=== PATIENT | male | born 1995 | race Caucasian/White ===

== ENCOUNTER 2016-07-26 08:41 | Emergency (ER) | payer OTHER ==
[2016-07-26 08:50] VITALS: O2SAT 100
[2016-07-26] MEDS ORDERED: XYLOCAINE 1%/Epi 1:100000 MDV 20 ML IJ ONE (09:16)
[2016-07-26] MEDS ORDERED: MORPHINE SULFATE 10 MG/ML IM ONE (09:16)
--- NOTE | 2016-07-26 09:21 | ERPHSYRPT ---
- History of Present Illness Time Seen by Provider: 07/26/16 08:45 Source: patient Patient Subjective Stated Complaint: pt had bm today and then noticed bright red blood in stool, Triage Nursing Assessment: pt has pain to rectum rating in at 7/10, pt dizzy Physician History: CC: hemorrhoid Hx: 20 y/o healthy male patient of Dr Franklin. He has hx of prior hemorrhoid in past with no need for medical treatment. Today he had BM at work and noted hemorrhoid, blood in toilet. He was concerned about blood. [place] some headache and lightheaded, left work, and came to ER. No abd pain. Timing/Duration: today Severity: moderate Allergies/Adverse Reactions: No Known Drug Allergies Allergy (Verified 07/26/16 08:51) Home Medications: No Home Meds 1 ea UD 01/03/15 [History] Hx Tetanus, Diphtheria Vaccination/Date Given: Yes Hx Influenza Vaccination/Date Given: No Hx Pneumococcal Vaccination/Date Given: No Immunizations Up to Date: Yes - Review of Systems Constitutional: No Fever, No Chills Abdominal/Gastrointestinal: Hematochezia, No Abdominal Pain, No Nausea, No Vomiting, No Diarrhea Genitourinary Symptoms: No Dysuria Musculoskeletal: No Back Pain Skin: No Rash Neurological: Dizziness (lightheaded), Headache, No Parasthesia All Other Systems: Reviewed and Negative - Past Medical History Pertinent Past Medical History: No - Past Surgical History Past Surgical History: Yes Other Surgical History: plastic surg of face - Social History Smoking Status: Current every day smoker How long have you smoked: YRS Exposure to second hand smoke: Yes Drug Use: none Patient Lives Alone: No - Nursing Vital Signs Nursing Vital Signs: Initial Vital Signs Temperature 99 F Temperature Source Oral Pulse Rate 71 Respiratory Rate 18 Blood Pressure [Right Arm] 160/87 Pain Intensity 7 - Physical Exam General Appearance: alert Eye Exam: PERRL/EOMI Ears, Nose, Throat Exam: normal ENT inspection, moist mucous membranes Neck Exam: normal inspection, non-tender, supple Respiratory Exam: normal breath sounds, lungs clear Cardiovascular Exam: regular rate/rhythm Gastrointestinal/Abdomen Exam: soft, No tenderness, No distention Male Genitalia Exam: normal genitalia Rectal Exam: hemorrhoids (partially thrombosed, open, mild bleeding) Back Exam: normal inspection, normal range of motion Extremity Exam: normal inspection, normal range of motion Neurologic Exam: alert, oriented x 3, cooperative Skin Exam: warm, dry, No rash SpO2 Interpretation: normal SpO2: 100 Oxygen Delivery: Room Air Procedures - Incision and Drainage Site: left sided external thrombosed hemorrhoid Anesthesia: 1% lidocaine w/epi cc's of anesthesia: 3 I & D Procedure: betadine prep Progress: The area was numbed with lidocaine. There was already a skin opening. Clot was squeezed thru this opening and remaining clot extracted with forceps. Tolerated well. No further bleeding. - Course Nursing assessment & vital signs reviewed: Yes Ordered Tests: Medication Summary Discontinued Medications Generic Name Dose Route Start Last Admin Trade Name Freq PRN Reason Stop Dose Admin Lidocaine/Epinephrine 5 ml 07/26/16 09:16 07/26/16 09:26 Xylocaine 1%/Epi [id number] Mdv 20 Ml IJ 07/26/16 09:17 5 ml STAT ONE Administration Lidocaine/Epinephrine Confirm 07/26/16 09:22 Xylocaine 1%/Epi 1:[id number] Mdv 20 Ml Administered 07/26/16 09:23 Dose 5 ml .ROUTE .STK-MED ONE Morphine Sulfate 8 mg 07/26/16 09:16 07/26/16 09:24 Morphine Sulfate 10 Mg/Ml IM 07/26/16 09:17 8 mg STAT ONE Administration Morphine Sulfate Confirm 07/26/16 09:22 Morphine Sulfate 10 Mg/Ml Administered 07/26/16 09:23 Dose 10 mg .ROUTE .STK-MED ONE - Progress Progress Note: 07/26/16 09:20 Discussed conservative Rx with witch horacio and hydrocortisone vs local anesthetic and clot excision. The hemorrhoid is already open. He discussed with mother and decided for attempt at clot removal. Discussed risks and benefits. - Departure Time of Disposition: 09:54 Departure Disposition: Home Clinical Impression: External hemorrhoid, bleeding Condition: Stable Critical Care Time: No Referrals: INO FRANKLIN MD [Primary Care Provider] - Instructions: Hemorrhoids Additional Instructions: Use sitz baths a couple of times a day. Cleanse with witch horacio pads several times a day. Rx hydrocortisone hemorrhoid cream. Tylenol if needed for discomfort. Return for problems or concerns. Follow up with Dr Franklin. Prescriptions: Hydrocortisone [Hydrocortisone 1%] 28 gm TP QID PRN #1 lashaun Merino [[place]] 1 each TP QID PRN #1 box
[2016-07-26] MEDS ORDERED: MORPHINE SULFATE 10 MG/ML ONE (09:22)
[2016-07-26] MEDS ORDERED: XYLOCAINE 1%/Epi 1:100000 MDV 20 ML ONE (09:22)
[2016-07-26 10:05] VITALS: BP 151/88; PULSE 76
== END 2016-07-26 10:05 | disposition home or self-care (01) ==
LOC: ED 08:41
DX: K64.4 Residual hemorrhoidal skin tags (principal)
CPT/HCPCS: 96372; 99283; 99284; J2270

== ENCOUNTER 2018-12-09 17:44 | Emergency (ER) | payer BC, OTHER ==
[2018-12-09 19:03] VITALS: BP 135/95; PULSE 88; O2SAT 98
--- NOTE | 2018-12-09 19:10 | ERPHSYRPT ---
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 sq only no tendon involvement seen on exploration and catalino debridment. Occurred: this afternoon Method of Injury: incised Quality: sharpness Extremities Pain Location: hand: left Modifying Factors: Improves With: movement Associated Symptoms: none Allergies/Adverse Reactions: No Known Drug Allergies Allergy (Verified 12/09/18 18:07) Home Medications: Dextroamphetamine/Amphetamine [Dextroamp-Amphetamin 20 mg Tab] 20 mg BID [History] Hx Tetanus, Diphtheria Vaccination/Date Given: Yes (08/2018) Hx Influenza Vaccination/Date Given: No Hx Pneumococcal Vaccination/Date Given: No Immunizations Up to Date: No - Review of Systems Constitutional: No Fever, No Chills Eyes: No Symptoms Ears, Nose, & Throat: No Symptoms Respiratory: No Cough, No Dyspnea Cardiac: No Chest Pain, No Edema, No Syncope Abdominal/Gastrointestinal: No Abdominal Pain, No Nausea, No Vomiting, No Diarrhea Genitourinary Symptoms: No Dysuria Musculoskeletal: No Back Pain, No Neck Pain Skin: Other (lac left hand), No Rash Neurological: No Dizziness, No Focal Weakness, No Sensory Changes Psychological: No Symptoms Endocrine: No Symptoms All Other Systems: Reviewed and Negative - Past Medical History Pertinent Past Medical History: No - Past Surgical History Past Surgical History: Yes Other Surgical History: dog bite - Social History Smoking Status: Current every day smoker How long have you smoked: YRS Exposure to second hand smoke: No Drug Use: none Patient Lives Alone: No - Nursing Vital Signs Nursing Vital Signs: Initial Vital Signs Pulse Rate 99 H 12/09/18 18:00 Respiratory Rate 16 12/09/18 18:00 Blood Pressure 148/98 12/09/18 18:00 O2 Sat by Pulse Oximetry 99 12/09/18 18:00 Pain Scale Pain Intensity 8 - Physical Exam General Appearance: alert Eyes, Ears, Nose, Throat Exam: moist mucous membranes Neck Exam: non-tender, supple Cardiovascular/Respiratory Exam: chest non-tender, normal breath sounds, regular rate/rhythm, no respiratory distress Abdominal Exam: non-tender, No guarding Back Exam: normal inspection, No vertebral tenderness Shoulder Exam: normal inspection, non-tender, no evidence of injury Elbow/Forearm Exam: normal inspection, non-tender, no evidence of injury Wrist Exam: normal inspection, non-tender, no evidence of injury Hand Exam: non-tender, normal ROM, laceration, No bone tenderness DTR - Upper Extremity Exam: bicep (R): 2+, bicep (L): 2+, tricep (R): 2+, tricep (L): 2+ Neuro/Tendon Exam: normal sensation, normal motor functions Mental Status Exam: alert, oriented x 3, cooperative Skin Exam: normal color, warm, dry SpO2: 98 Procedures - Laceration/Wound Repair Left Hand Wound Location: Left, hand Wound Length (cm): 8 Wound's Depth, Shape: superficial, flap Wound Explored: no foreign body noted Irrigated: Yes (NS 200 cc ) Hibiclens Prep: Yes Anesthesia: local, 1% Lidocaine Volume Anesthetic (ccs): 5 Wound Debrided: moderate Wound Repaired With: sutures Suture Size/Type: 4-0, nylon, vicryl Number of Sutures: 8 Layer Closure?: Yes Deep Layer Suture Size/Type: 4:0 Number Deep Layer Sutures: 2 Sterile Dressing Applied?: Yes Splint Applied?: No Sling Applied?: No - Course Nursing assessment & vital signs reviewed: Yes Ordered Tests: Active Orders 24 hr Category Date Time Status Wound Care STAT Care 12/09/18 19:10 Active - Progress Progress: improved, re-examined Counseled pt/family regarding: diagnosis, need for follow-up - Departure Departure Disposition: Home Clinical Impression: Laceration of left hand Condition: Good Critical Care Time: No Referrals: ESTEFANI BROOKS [Primary Care Provider] - Instructions: Wound Care (DC) Additional Instructions: sutures can be removed by your Dr in 10-12 days; the inside sutures will dissolve adn the outer ones require removal. return meantime if any redness , swelling or other concerns; there may still be microscopic material not seen so return if any delayed symptoms; apply fresh dressing each day with antibiotic ointment. follow up your blood pressure with your dr for recheck. the edges of the flap may turn into a scab and slough and require further wound treatment , so followup with your dr for wound check. Prescriptions: Cephalexin Mh 500 mg [Keflex 500 mg] 500 mg PO TID #30 capsule Mupirocin [Bactroban OINTMENT] 22 gm TP BID #1 tube
== END 2018-12-09 20:22 | disposition home or self-care (01) ==
LOC: ED 17:44
DX: S61.412A Laceration without foreign body of left hand, initial encounter (principal); W45.8XXA Other foreign body or object entering through skin, initial encounter; W22.8XXA Striking against or struck by other objects, initial encounter
CPT/HCPCS: 12004; 99283

== ENCOUNTER 2020-06-10 08:00 | Emergency (ER) | payer BC, OTHER ==
[2020-06-10 08:27] VITALS: O2SAT 100
[2020-06-10] MEDS ORDERED: TORAdol 30 mg Injection ONE (08:30)
[2020-06-10] MEDS ORDERED: TORAdol 30 mg Injection IM ONE (08:31)
--- NOTE | 2020-06-10 08:36 | ERPHSYRPT ---
- History of Present Illness Time Seen by Provider: 06/10/20 08:21 Source: patient Exam Limitations: no limitations Patient Subjective Stated Complaint: Left foot pain Triage Nursing Assessment: Patient ambulated back to ED and transferred self to bed. Patient A+O X3. Patient's skin pink, warm and dry. Patient complains of left foot pain on the top of foot for one week. Patient denies injury. Patient's states pain is constant, sharp burning pain 5/10 and is worse when ambulating. No bruising or swelling noted. Physician History: 24 years old male presented in the ER with chief complaint of left foot pain for 1 week without any obvious known trauma. 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 Patient report he removed a fence and after that he noticed some pain almost a week ago which is progressively worsening with ambulation, moderate intensity, sharp nature, has been taking ibuprofen with relief of pain but returns after few hours. Pain gets better with resting as well. Patient thinks he might have twisted his foot while lifting heavy fans. No pain in the ankle. No numbness. Minimal swelling on top of anterior foot. Method of Injury: unknown Occurred: days ago (7) Quality: aching, sharpness Severity of Pain-Max: moderate Severity of Pain-Current: moderate Lower Extremities Pain: foot: left Modifying Factors: Improves With: immobilization, pain medication, rest. Worsens With: movement Associated Symptoms: none Allergies/Adverse Reactions: No Known Drug Allergies Allergy (Verified 06/10/20 08:17) Home Medications: Dextroamphetamine/Amphetamine [Dextroamp-Amphetamin 20 mg Tab] 30 mg PO BID 12/09/18 [History] Hx Tetanus, Diphtheria Vaccination/Date Given: Yes (08/2018) Hx Influenza Vaccination/Date Given: No Hx Pneumococcal Vaccination/Date Given: No Immunizations Up to Date: Yes Travel Risk - International Travel Have you traveled outside of the country in past 3 weeks: No - Coronavirus Screening Are you exhibiting any of the following symptoms?: No Close contact with a COVID-19 positive Pt in past 14-21 Days: No - Review of Systems Constitutional: No Symptoms Eyes: No Symptoms Ears, Nose, & Throat: No Symptoms Respiratory: No Symptoms Cardiac: No Symptoms Abdominal/Gastrointestinal: No Symptoms Musculoskeletal: Joint Pain, Other Skin: No Symptoms Neurological: No Symptoms Psychological: No Symptoms - Past Medical History Pertinent Past Medical History: No Neurological History: No Pertinent History ENT History: No Pertinent History Cardiac History: No Pertinent History Respiratory History: No Pertinent History Endocrine Medical History: No Pertinent History Musculoskeletal History: Fractures GI Medical History: No Pertinent History History: No Pertinent History Psycho-Social History: Attention Deficit Disorder Male Reproductive Disorders: No Pertinent History Other Medical History: fx to right foot - Past Surgical History Past Surgical History: Yes Other Surgical History: dog bite - Social History Smoking Status: Former smoker How long have you smoked: YRS Exposure to second hand smoke: No Drug Use: none Patient Lives Alone: No - Nursing Vital Signs Nursing Vital Signs: Initial Vital Signs Temperature 97.9 F 06/10/20 08:20 Pulse Rate 98 H 06/10/20 08:20 Respiratory Rate 18 06/10/20 08:20 Blood Pressure 153/95 06/10/20 08:20 O2 Sat by Pulse Oximetry 100 06/10/20 08:20 Pain Scale Pain Intensity 5 - Physical Exam General Appearance: no apparent distress Neck Exam: normal inspection, supple, full range of motion Cardiovascular/Respiratory Exam: normal breath sounds, regular rate/rhythm Legs Exam: bilateral leg: non-tender, normal inspection, normal range of motion Ankle Exam: bilateral ankle: non-tender, normal inspection, normal range of motion Foot Exam: right foot: non-tender, left foot: bone tenderness (Anterior proximal foot), pain, soft tissue tenderness, bilateral foot: normal inspection, normal range of motion, no evidence of injury Neuro/Tendon Exam: normal sensation, normal motor functions, normal tendon functions Mental Status Exam: alert, oriented x 3, cooperative Skin Exam: normal color SpO2 Interpretation: normal SpO2: 100 O2 Delivery: Room Air Ordered Tests: Active Orders 24 hr Category Date Time Status FOOT (MINIMUM 3 VIEWS) Stat Exams 06/10/20 08:28 Completed Medication Summary Discontinued Medications Generic Name Dose Route Start Last Admin Trade Name Freq PRN Reason Stop Dose Admin Ketorolac Tromethamine 30 mg 06/10/20 08:31 06/10/20 08:31 Toradol 30 Mg Injection IM 06/10/20 08:32 30 mg STAT ONE Administration Ketorolac Tromethamine Confirm 06/10/20 08:30 Toradol 30 Mg Injection Administered 06/10/20 08:31 Dose 30 mg .ROUTE .STK-MED ONE - Progress Progress: improved Progress Note: 06/10/20 08:55 he is given Toradol for symptomatic relief. He has minimal tenderness in anterior foot with no obvious fracture noticed on the x-rays. I believe patient has ligamentous sprain, recommended Buddy wrap, avoiding exertional activities, ice and outpatient follow-up. Discussed signs symptoms of worsening needing return to ER which he seems understanding. Counseled pt/family regarding: diagnosis, need for follow-up, rad results - Departure Departure Disposition: Home Clinical Impression: Foot sprain Qualifiers: Encounter type: initial encounter Laterality: left Qualified Code(s): S93.602A - Unspecified sprain of left foot, initial encounter Condition: Stable Critical Care Time: No Referrals: ESTEFANI BROOKS [Primary Care Provider] - Follow Up with PCP/3 days LUISA HAYWARD NP [NON-STAFF PHY W/O PRIVILEGES] - (2 to 3 days for reevaluation) Instructions: Foot Sprain (DC) Additional Instructions: Avoid exertional activities. Elevation, Buddy wrap, ice. Take Tylenol ibuprofen as needed for pain. Follow-up with Ortho/podiatry for reevaluation. Return to ER for any worsening. Prescriptions: Ibuprofen 600 mg PO Q6HPRN PRN 10 Days #20 tablet PRN Reason: Pain
--- NOTE | 2020-06-10 08:58 | XRAY ---
Indication: Lateral pain 1 week. No known injury. Comparison: None 3 nonweightbearing views left foot demonstrates normal bones, articulation, and soft tissues.
[2020-06-10 09:15] VITALS: BP 122/70; PULSE 87
== END 2020-06-10 09:14 | disposition home or self-care (01) ==
LOC: ED 08:00
DX: S93.602A Unspecified sprain of left foot, initial encounter (principal); M79.672 Pain in left foot
CPT/HCPCS: 73630; 96372; 99284; J1885